=== PATIENT | female | born 1985 | race Caucasian/White ===

== ENCOUNTER → 2021-12-17 15:36 | Outpatient (BNVA) | payer MEDICAID, SELFPAY | PROVIDERS: Visit Provider Registered Nurse Neonatal Intensive Care | DX: Z20.822 Contact with and (suspected) exposure to COVID-19 (principal); R11.0 Nausea | CPT/HCPCS: 87635 ==

== ENCOUNTER 2022-02-11 18:15 | Emergency (ER) | payer MEDICAID, SELFPAY ==
[2022-02-11 18:21] VITALS: BP 135/82; PULSE 106; RESP 18; TEMP 37.5; O2SAT 97; BMI 37.4
--- NOTE | 2022-02-11 18:34 | W.ED.NAVMDI ---
HPI - Nausea/Vomiting/Diarrhea General: Chief complaint: Nausea/Vomiting/Diarrhea Stated complaint: N/V/D, cant keep anything down Time Seen by Provider: 02/11/22 18:23 Source: patient Mode of arrival: ambulatory Limitations: no limitations History of Present Illness: 36-year-old female states that throughout the day she been having multiple episodes of vomiting diarrhea along with some abdominal cramping she has not been able to tolerate any p.o. fluids and feels like she is getting dehydrated she denies any abdominal pain states she is has cramping with her vomiting. No recent ill contacts denies any vomiting blood or diarrhea denies any fevers. Associated nausea: Yes Associated symtoms: Reports nausea; Denies chest pain, dysuria or headache(s) Review of Systems Const: Denies: fever(s), chills, body aches or change in appetite Eyes: Denies: blurry vision or eye discomfort ENMT: Denies: throat pain or dental pain Card: Denies: chest pain Resp: Denies: dyspnea GI: Reports: nausea and vomiting : Denies: dysuria Musc: Denies: neck pain or back pain Skin/Breast: Denies: rash Neuro: Denies: headache(s) Psych: Denies: depression Edin/Lymph: Denies: easy bruising All/Imm: Denies: urticaria PFSH ED PFSH: Medical History Psychiatric care Social History (Updated 02/11/22 @ 18:35 by Shaw Matthews MD) Substance/Drug Use: former Female Reproductive History: Date of last menstrual period: 02/03/22 Physical Exam Const: COMMON NORMALS: no acute distress, patient oriented x3 and healthy appearing HENMT: COMMON NORMALS: normocephalic and atraumatic HEAD & SCALP: normocephalic and atraumatic Eye: COMMON NORMALS: Equal, round and reactive pupils present and EOMs intact bilaterally PUPIL: Yes Equal, round and reactive pupils present Neck/C-Spine: COMMON NORMALS: full ROM and supple Chest: COMMONS NORMALS: normal inspection of the chest and normal palpation of entire chest wall Resp: COMMON NORMALS: normal respiratory effort, No retractions, No use of accessory muscles and clear to auscultation bilaterally AUSCULTATION: clear to auscultation bilaterally Cardio: COMMON NORMALS: regular rate, regular rhythm and No murmurs present (Cardio) RATE: regular rate RHYTHM: regular rhythm GI: COMMON NORMALS: Normal to inspection, nondistended, normoactive bowel sounds present, Soft to palpation, non-tender and no masses PALPATION: Yes Soft to palpation Extremity: COMMON NORMALS: normal to inspection and full ROM Neuro: COMMON NORMALS: patient oriented x3, moves all extremities and no focal motor deficits Psych: COMMON NORMALS: mental status grossly normal, Normal thought process present and cooperative THOUGHT PROCESS: Normal thought process present Skin: COMMON NORMALS: no rashes or lesions noted and no wounds GENERAL SKIN EXAM: no rashes or lesions noted Course Vital Signs: Vital signs: Vital Signs Temperature 99.2 F 02/11/22 18:53 Pulse Rate 88 02/11/22 18:53 Respiratory Rate 19 H 02/11/22 18:53 Blood Pressure 114/89 02/11/22 18:53 Pulse Oximetry 97 02/11/22 18:21 MDM - Nausea/Vomiting/Diarrhea Medical Decision Making Patient presents here with vomiting is likely viral in origin she feels improved here after IV fluids and nausea medicine CT abdomen blood works all normal we will prescribe her Zofran for home she is to follow-up with PCP and return if worsening Lab Data : 02/11/22 18:45 02/11/22 18:45 Radiology Impressions Abdomen/Pelvis CT 02/11/22 19:37 IMPRESSION: 1. Wall thickening of small bowel loops in the left abdomen. Findings raise suspicion for nonspecific enteritis. 2. Dominant follicle in the left ovary. 3. Small hiatal hernia. 4. Incidental/nonacute findings are listed in the report. Laboratory Results WBC 6.5 10^3/uL (4.0-10.0) 02/11/22 18:45 RBC 5.06 10^6/uL (4.1-5.3) 02/11/22 18:45 Hgb 11.8 g/dL (11.5-15.3) 02/11/22 18:45 Hct 38.8 % (37.0-47.0) 02/11/22 18:45 MCV 76.7 fl (81-99) L 02/11/22 18:45 MCH 23.3 pg (28.0-34.0) L 02/11/22 18:45 MCHC 30.4 g/dL (30.0-36.0) 02/11/22 18:45 RDW 15.9 % (12.1-15.1) H 02/11/22 18:45 Plt Count 289 10^3/cmm (130-400) 02/11/22 18:45 MPV 10.2 fL (7.4-10.4) 02/11/22 18:45 Neut % (Auto) 71.3 % 02/11/22 18:45 Lymph % (Auto) 21.2 % 02/11/22 18:45 Wilkin % (Auto) 5.1 % 02/11/22 18:45 Eos % (Auto) 1.9 % 02/11/22 18:45 Baso % (Auto) 0.3 % 02/11/22 18:45 Neut # (Auto) 4.61 10^3/uL (1.8-7.7) 02/11/22 18:45 Lymph # (Auto) 1.4 10^3/uL (0.8-4.8) 02/11/22 18:45 Wilkin # (Auto) 0.3 10^3/uL (0.2-0.9) 02/11/22 18:45 Eos # (Auto) 0.1 10^3/uL (0.0-0.8) 02/11/22 18:45 Baso # (Auto) 0.0 10^3/uL (0.0-0.1) 02/11/22 18:45 Nucleated RBC % (auto) 0 % 02/11/22 18:45 Nucleated RBCs # 0.0 /100WBC 02/11/22 18:45 Sodium 136 mmol/L (136-145) 02/11/22 18:45 Potassium 3.8 mmol/L (3.5-5.1) 02/11/22 18:45 Chloride 105 mmol/L (98-107) 02/11/22 18:45 Carbon Dioxide 19 mmol/L (22-29) L 02/11/22 18:45 Anion Gap 15.8 (5-19) 02/11/22 18:45 BUN 9 mg/dL (6-20) 02/11/22 18:45 Creatinine 0.6 mg/dL (0.5-0.9) 02/11/22 18:45 GFR Calculation 113.8 mL/min (90-130) 02/11/22 18:45 Glucose 95 mg/dL (65-115) 02/11/22 18:45 Calculated Osmolality 280 mOsm/kg (285-295) L 02/11/22 18:45 Calcium 9.2 mg/dL (8.5-10.5) 02/11/22 18:45 Total Bilirubin 0.6 mg/dL (0.15-1.2) 02/11/22 18:45 AST 18 U/L (0-32) 02/11/22 18:45 ALT 16 U/L (0-33) 02/11/22 18:45 Alkaline Phosphatase 86 IU/L (35-105) 02/11/22 18:45 Total Protein 7.1 g/dL (6.6-8.7) 02/11/22 18:45 Albumin 3.9 g/dL (3.5-5.2) 02/11/22 18:45 Globulin 3.2 g/dL (1.3-4.6) 02/11/22 18:45 Lipase 10 U/L (13-60) L 02/11/22 18:45 HCG, Qual Negative (Negative) 02/11/22 19:10 Urine Color Yellow (Yellow) 02/11/22 18:45 Urine Appearance Sl hazy (CLEAR) 02/11/22 18:45 Urine pH 5 (5-7) 02/11/22 18:45 Ur Specific [place] 1.020 (1.005-1.030) 02/11/22 18:45 Urine Protein Neg (Negative) 02/11/22 18:45 Urine Glucose (UA) Norm (Normal) 02/11/22 18:45 Urine Ketones Negative (Negative) 02/11/22 18:45 Urine Blood Neg (Negative) 02/11/22 18:45 Urine Nitrate Negative (Negative) 02/11/22 18:45 Urine Bilirubin 1+ (Negative) H 02/11/22 18:45 Urine Urobilinogen 1 mg/dL (Negative) H 02/11/22 18:45 Ur Leukocyte Esterase Negative (Negative) 02/11/22 18:45 Urine RBC Rare /hpf (0-2) 02/11/22 18:45 Urine WBC 0-4 /hpf (0-5) H 02/11/22 18:45 Ur Squamous Epith Cells 10-15 /hpf (0-5) H 02/11/22 18:45 Amorphous Sediment Not Reportable 02/11/22 18:45 Urine Bacteria 1+ /hpf (NONE) H 02/11/22 18:45 Influenza Type A Ag Negative (Negative) 02/11/22 18:45 Influenza Type B Ag Negative (Negative) 02/11/22 18:45 Discharge Plan Discharge Patient Disposition: Home Clinical Impression: Vomiting Prescriptions: New ondansetron 4 mg tablet,disintegrating 4 mg PO Q6H PRN (Reason: nausea and vomiting) Qty: 14 0RF No Action albuterol sulfate 90 mcg/actuation Hfa Aerosol Inhaler 2 inh INHALATION QID PRN (Reason: Shortness Of Breath) 0RF Discharge Orders: Discharge ED (Routine); Ordered 02/11/22 Ordered By: Shaw Matthews Discharge Diet: Advance as tolerated Discharge Activity: Resume usual activity Patient Instructions: Acute Nausea and Vomiting (ED) Coding Level of Care Code ED Respiratory Coordinator for Chg Fwd Exam Comprehensive
[2022-02-11] MEDS: sodium chloride 0.9% 1,000 ML 999 ML IV (18:50)
[2022-02-11] MEDS: metoclopramide 5 mg/mL SDV 2 mL 10 MG IVP (18:51)
[2022-02-11] MEDS: diphenhydrAMINE 50 mg/mL SDV 1mL IVP (18:51)
[2022-02-11 18:53] VITALS: BP 114/89; PULSE 88; RESP 19; TEMP 37.3
[2022-02-11 18:59] LABS: Basophils % 0.3 %; Eosinophils # 0.1 10^3/uL (0.0-0.8); Eosinophils % 1.9 %; Hematocrit 38.8 % (37.0-47.0); Hemoglobin 11.8 g/dL (11.5-15.3); Lymphocytes # 1.4 10^3/uL (0.8-4.8); Lymphocytes % 21.2 %; Mean Corpuscular HGB Conc 30.4 g/dL (30.0-36.0); Mean Corpuscular Hemoglobin 23.3 pg (28.0-34.0); Mean Corpuscular Volume 76.7 fl (81-99); Mean Platelet Volume 10.2 fL (7.4-10.4); Monocytes # 0.3 10^3/uL (0.2-0.9); Monocytes % 5.1 %; Neutrophils # 4.61 10^3/uL (1.8-7.7); Neutrophils % 71.3 %; Nucleated Red Blood Cells % 0 %; Platelet Count 289 10^3/cmm (130-400); Red Blood Count 5.06 10^6/uL (4.1-5.3); Red Cell Distribution Width 15.9 % (12.1-15.1); White Blood Count 6.5 10^3/uL (4.0-10.0)
[2022-02-11 19:15] LABS: Alanine Aminotransferase 16 U/L (0-33); Albumin Level 3.9 g/dL (3.5-5.2); Alkaline Phosphatase 86 IU/L (35-105); Anion Gap 15.8 (5-19); Aspartate Amino Transferase 18 U/L (0-32); Blood Urea Nitrogen 9 mg/dL (6-20); Calcium 9.2 mg/dL (8.5-10.5); Carbon Dioxide 19 mmol/L (22-29); Chloride 105 mmol/L (98-107); Globulin 3.2 g/dL (1.3-4.6); Glomerular Filtration Rate 113.8 mL/min (90-130); Glucose 95 mg/dL (65-115); Lipase 10 U/L (13-60); Osmolality Calculated 280 mOsm/kg (285-295); Potassium 3.8 mmol/L (3.5-5.1); Sodium 136 mmol/L (136-145); Total Bilirubin 0.6 mg/dL (0.15-1.2); Total Protein 7.1 g/dL (6.6-8.7)
[2022-02-11 19:35] LABS: HCG, Serum Qual Negative (Negative)
--- NOTE | 2022-02-11 19:37 | CTR_ITS ---
PROCEDURE INFORMATION: Exam: CT Abdomen And Pelvis With Contrast Exam date and time: 02/11/2022 8:09 PM Age: 36 years old Clinical indication: Nausea and vomiting; Abdominal pain; Generalized; Additional info: Abd pain TECHNIQUE: Imaging protocol: Computed tomography of the abdomen and pelvis with contrast. Radiation optimization: All CT scans at this facility use at least one of these dose optimization techniques: automated exposure control; mA and/or kV adjustment per patient size (includes targeted exams where dose is matched to clinical indication); or iterative reconstruction. Contrast material: OMNI 300; Contrast volume: 96 ml; Contrast route: INTRAVENOUS (IV); COMPARISON: No relevant prior studies available. RADIATION DOSE METRICS: Total DLP (mGy-cm): 1641.2 FINDINGS: Lungs: Visualized lungs are clear. Pleural spaces: No pleural effusion. Heart: Visualized portions of the heart are unremarkable. Liver: The liver is unremarkable. Gallbladder and bile ducts: Patient has had a previous cholecystectomy. No biliary ductal dilatation. Pancreas: The pancreas is unremarkable. No pancreatic ductal dilatation. Spleen: The spleen is unremarkable. Adrenal glands: The right and left adrenal glands are unremarkable. Kidneys and ureters: The right and left kidneys are unremarkable. The right and left ureters are unremarkable. Stomach and bowel: Small hiatal hernia. Wall thickening of small bowel loops in the left abdomen. No acute abnormality in the colon. Appendix: The appendix is visualized and is unremarkable. No findings to suggest acute appendicitis. Intraperitoneal space: No free intraperitoneal air. No ascites. No loculated fluid collections to suggest an abscess. Arteries: No evidence for aortic aneurysm or aortic dissection. Lymph nodes: No lymphadenopathy. Urinary bladder: The bladder is incompletely filled, which can limit evaluation. No focal abnormality in the bladder however. Reproductive: The uterus is unremarkable. Multiple subcentimeter follicles in both right and left ovaries. Dominant follicle in the left ovary measuring 1.9 x 1.6 cm. Bones/joints: Post-surgical changes consistent with previous spine fusion from T11 through L3. Old compression deformity of L1. Soft tissues: No acute abnormality in the extra-abdominal soft tissues. CT/CT abdomen pelvis w con* [id number] IMPRESSION: 1. Wall thickening of small bowel loops in the left abdomen. Findings raise suspicion for nonspecific enteritis. 2. Dominant follicle in the left ovary. 3. Small hiatal hernia. 4. Incidental/nonacute findings are listed in the report.
[2022-02-11 19:39] LABS: Add Urine Culture? No; Add Urine Microscopic? YES; Bacteria Urine 1+ /hpf; Bilirubin Urine 1+ (Negative); Blood Urine Neg (Negative); Glucose Urine UA Norm (Normal); Ketones Urine Negative (Negative); Leukocyte Esterase Urine Negative (Negative); Nitrate Urine Negative (Negative); Protein Urine Neg (Negative); RBC Urine RARE /hpf (0-2); Urine Appearance SL Hazy (CLEAR); Urine Color Yellow (Yellow); Urobilinogen Urine 1 mg/dL (Negative); WBC Urine 0-4 /hpf (0-5); pH Urine 5 (5-7)
[2022-02-11 19:42] LABS: Influenza A by IFA Negative (Negative); Influenza B by IFA Negative (Negative)
[2022-02-11] MEDS: iohexol 300 mg/mL 100 mL Btl IV (20:25)
== END 2022-02-11 21:35 | disposition home or self-care (01) ==
PROVIDERS: Emergency Provider Emergency Medicine
DX: R11.2 Nausea with vomiting, unspecified (principal)
CPT/HCPCS: 74177; 80053; 81001; 83690; 84703; 85025; 87804; 96361; 96374; 96375; 99284; J1200; J2765; J7030; Q9967

== ENCOUNTER 2022-11-06 16:05 | Emergency (ER) | payer OTHER, MEDICAID, SELFPAY ==
[2022-11-06 16:27] VITALS: BP 126/57; PULSE 88; RESP 16; TEMP 37.1; O2SAT 98; BMI 42.0
--- NOTE | 2022-11-06 18:58 | PC.NURSE ---
pt with lab for blood draw then ambulatory to restroom to give urine sample. pt ambulatory with steady gait.
--- NOTE | 2022-11-06 19:04 | W.ED.ABDPA2 ---
Documented by User: JUJU Buenrostro 11/06/22 20:41 HPI - Abdominal Pain General: Chief Complaint: Abdominal Pain Stated Complaint: possible ulcer Time Seen by Provider: 11/06/22 19:04 Source: patient Mode of arrival: ambulatory Limitations: no limitations History of Present Illness: Patient is a 37-year-old female presents to ED today with a complaint of upper abdominal pain over the past week or so. She apparently was seen at [facility] ED yesterday for complaints of an abscessed tooth as well as abdominal pains. She underwent lab/urine evaluation as well as CT imaging of her abdomen and pelvis. She was told that she had an ulcer and was placed on Carafate and Prilosec as well as antibiotics for the tooth. Patient does admit to NSAID use she has been treating her tooth ache for several weeks. She admits to alcohol use mainly on the weekends. No history of peptic ulcer disease. Patient has not noticed any bloody or black or tarry stools. She is not having any vomiting. She states pain in her upper abdomen is radiating to her back and wants to make sure my kidneys are okay . Does not complain of dysuria, frequency, urgency, cloudy or odorous urine. MD elicited complaint: abdominal pain Pertinent past history: other (diagnosed with peptic ulcer tomorrow) Onset (ago): day(s) Pain Consistency: constant Location: Epigastric Severity: moderate Quality: cramping and sharp Radiation: none Migration to: no migration Relieving factors: nothing Associated Symptoms: Denies change in bowel habits, chills, dysuria, fever(s), hematochezia, hematuria, hematemesis, melena, nausea and vomiting Related Data: Patient : No Review of Systems Const: Denies: fever(s), chills, body aches, fatigue or malaise Card: Denies: chest pain Resp: Denies: dyspnea GI: Reports: abdominal pain; Denies: nausea, vomiting, hematemesis, change in bowel habits, hematochezia or melena : Reports: flank pain; Denies: difficulty voiding, dysuria, urinary frequency, urinary urgency, urinary hesitancy, hematuria or pelvic pain Musc: Reports: back pain (flank pains); Denies: neck pain, extremity pain or joint pain Skin/Breast: Denies: rash Neuro: Denies: headache(s), numbness in extremities, weakness in extremities or sensory changes PFS ED PFSH: Medical History Psychiatric care Physical Exam Const: COMMON NORMALS: no acute distress, patient oriented x3, no limitations, alert and well nourished GENERAL APPEARANCE: cooperative NUTRITIONAL APPEARANCE: obese ORIENTATION/CONSCIOUSNESS: Yes awake, Yes oriented to person, Yes oriented to place and Yes oriented to time HENMT: COMMON NORMALS: normocephalic and atraumatic HEAD & SCALP: normal to inspection, normocephalic and atraumatic Resp: COMMON NORMALS: normal respiratory effort and clear to auscultation bilaterally AUSCULTATION: clear to auscultation bilaterally Cardio: COMMON NORMALS: regular rate and regular rhythm RATE: regular rate RHYTHM: regular rhythm GI: COMMON NORMALS: Normal to inspection, nondistended, normoactive bowel sounds present, Soft to palpation, No hepatosplenomegaly present and no masses INSPECTION: Yes normal to inspection AUSCULTATION: Yes normoactive bowel sounds PALPATION: Yes Soft to palpation, Yes Tenderness to palpation present (GI) (epigastric, throughout upper abdomen), No Guarding due to palpation present (GI), No Rigid due to palpation and Yes No hepatosplenomegaly present : COMMON NORMALS: Yes no CVA tenderness BLADDER/KIDNEY EXAM: Yes no CVA tenderness Back/Pelvis: COMMON NORMALS: no CVA tenderness, thoracic and lumbar spine normal to inspection, no thoracic nor lumbar tenderness and thoraco-lumbar ROM normal Extremity: COMMON NORMALS: normal to inspection GENERAL: Yes normal exam except as noted Neuro: COMMON NORMALS: patient oriented x3, moves all extremities, no focal motor deficits and no sensory deficits noted SENSORIUM/ORIENTATION: Yes alert, Yes oriented to person, Yes oriented to place and Yes oriented to time Skin: COMMON NORMALS: no rashes or lesions noted GENERAL SKIN EXAM: no rashes or lesions noted Course Vital Signs: Vital signs: Vital Signs Temperature 98.7 F 11/06/22 16:27 Pulse Rate 98 11/06/22 20:40 Respiratory Rate 16 11/06/22 20:40 Blood Pressure 140/66 11/06/22 20:40 Pulse Oximetry 96 11/06/22 20:40 Oxygen Delivery Me thod 11/06/22 16:27 MDM - Abdominal Pain Medical Decision Making [facility] records were obtained. Patient CT scan showing: inflammation of the first second portion duodenum with findings suspicious for an ulcer along the anterior aspect of the second portion of the duodenal wall without full-thickness perforation direct visualization is recommended Patient's abdomen is non-surgical today. She has a normal white count. Hemoglobin is 10.1. It was 10.9 yesterday at [facility]. She did have a positive Hemoccult test performed there. I do not feel the need to repeat this today. Remainder of patient's blood work is unremarkable. Urine showing some hematuria and trace leuks but is overly contaminated. Patient has no UTI-like symptoms. Her urine was completely clear yesterday at [facility]. I think at this time most appropriate action would be getting her set up with general surgery for endoscopy. Recommend she continue her Carafate and Prilosec. Does not have a primary care doctor so I will place information with case management to get her one. Strict return to ED precautions given in regards to lightheadedness, dizziness, passing out episodes, racing heart rate, black/tarry stools, etc. Lab Data 11/06/22 18:54 11/06/22 18:54 Labs/Radiology: Laboratory Results WBC 7.2 10^3/uL (4.0-10.0) 11/06/22 18:54 RBC 4.46 10^6/uL (4.1-5.3) 11/06/22 18:54 Hgb 10.1 g/dL (11.5-15.3) L 11/06/22 18:54 Hct 35.0 % (37.0-47.0) L 11/06/22 18:54 MCV 78.5 fl (81-99) L 11/06/22 18:54 MCH 22.6 pg (28.0-34.0) L 11/06/22 18:54 MCHC 28.9 g/dL (30.0-36.0) L 11/06/22 18:54 RDW 19.1 % (12.1-15.1) H 11/06/22 18:54 Plt Count 374 10^3/cmm (130-400) 11/06/22 18:54 MPV 10.0 fL (7.4-10.4) 11/06/22 18:54 Neut % (Auto) 64.3 % 11/06/22 18:54 Lymph % (Auto) 27.8 % 11/06/22 18:54 Kershaw % (Auto) 5.6 % 11/06/22 18:54 Eos % (Auto) 1.5 % 11/06/22 18:54 Baso % (Auto) 0.4 % 11/06/22 18:54 Neut # (Auto) 4.60 10^3/uL (1.8-7.7) 11/06/22 18:54 Lymph # (Auto) 2.0 10^3/uL (0.8-4.8) 11/06/22 18:54 Kershaw # (Auto) 0.4 10^3/uL (0.2-0.9) 11/06/22 18:54 Eos # (Auto) 0.1 10^3/uL (0.0-0.8) 11/06/22 18:54 Baso # (Auto) 0.0 10^3/uL (0.0-0.1) 11/06/22 18:54 Nucleated RBC % (auto) 0 % 11/06/22 18:54 Nucleated RBCs # 0.0 /100WBC 11/06/22 18:54 Sodium 138 mmol/L (136-145) 11/06/22 18:54 Potassium 3.9 mmol/L (3.5-5.1) 11/06/22 18:54 Chloride 104 mmol/L (98-107) 11/06/22 18:54 Carbon Dioxide 24 mmol/L (22-29) 11/06/22 18:54 Anion Gap 13.9 (5-19) 11/06/22 18:54 BUN 9 mg/dL (6-20) 11/06/22 18:54 Creatinine 0.6 mg/dL (0.5-0.9) 11/06/22 18:54 GFR Calculation 113.1 mL/min (90-130) 11/06/22 18:54 Glucose 84 mg/dL (65-115) 11/06/22 18:54 Calculated Osmolality 284 mOsm/kg (285-295) L 11/06/22 18:54 Calcium 9.9 mg/dL (8.5-10.5) 11/06/22 18:54 Total Bilirubin 0.2 mg/dL (0.15-1.2) 11/06/22 18:54 AST 17 U/L (0-32) 11/06/22 18:54 ALT 14 U/L (0-33) 11/06/22 18:54 Alkaline Phosphatase 117 U/L (35-105) H 11/06/22 18:54 Total Protein 7.3 g/dL (6.6-8.7) 11/06/22 18:54 Albumin 4.0 g/dL (3.5-5.2) 11/06/22 18:54 Globulin 3.3 g/dL (1.3-4.6) 11/06/22 18:54 Lipase 13 U/L (13-60) 11/06/22 18:54 HCG, Qual Negative (Negative) 11/06/22 18:54 Urine Color Yellow (Yellow) 11/06/22 19:39 Urine Appearance Hazy (CLEAR) A 11/06/22 19:39 Urine pH 6 (5-7) 11/06/22 19:39 Ur Specific Dinosaur 1.020 (1.005-1.030) 11/06/22 19:39 Urine Protein Neg (Negative) 11/06/22 19:39 Urine Glucose (UA) Norm (Normal) 11/06/22 19:39 Urine Ketones Negative (Negative) 11/06/22 19:39 Urine Blood 2+ (Negative) H 11/06/22 19:39 Urine Nitrate Negative (Negative) 11/06/22 19:39 Urine Bilirubin Neg (Negative) 11/06/22 19:39 Urine Urobilinogen Norm mg/dL (Negative) 11/06/22 19:39 Ur Leukocyte Esterase Trace (Negative) H 11/06/22 19:39 Urine RBC 0-4 /hpf (0-2) H 11/06/22 19:39 Urine WBC 0-4 /hpf (0-5) H 11/06/22 19:39 Ur Squamous Epith Cells Too numerous to cnt /hpf (0-5) H 11/06/22 19:39 Amorphous Sediment Not Reportable 11/06/22 19:39 Urine Bacteria 3+ /hpf (NONE) H 11/06/22 19:39 Discharge Plan Discharge Patient Disposition: Home Clinical Impression: Duodenal ulcer Condition: Stable Prescriptions: No Action ondansetron HCl 4 mg tablet 4 mg PO Q8H 3 Days Qty: 9 0RF fluticasone propionate 50 mcg/actuation spray,suspension 2 spray intranasal DAILY PRN (Reason: allergy symptoms) Qty: 16 0RF Rx Instructions: administer into each nostril albuterol sulfate [Ventolin HFA] 90 mcg/actuation HFA aerosol inhaler See Rx Instructions .ROUTE .COMPLEX Qty: 18 0RF Dose Instruction: TAKE 2 PUFFS BY MOUTH FOUR TIMES DAILY NEEDED FOR SHORTNESS OF BREATH Rx Instructions: TAKE 2 PUFFS BY MOUTH FOUR TIMES DAILY NEEDED FOR SHORTNESS OF BREATH Discharge Orders: Discharge ED (Routine); Ordered 11/06/22 Ordered By: Mckenzie Coburn Referrals: Jeffrey Velázquez MD [Primary Care Provider] - Activity Restrictions/Additional Instructions: As we discussed case management should contact you shortly to set you up with a general surgeon to evaluate the need for an endoscopy. You need to monitor stools for black tarry stools. You need to return to the emergency department for severe dizziness, lightheadedness, syncopal episodes, or generally feeling unwell. Also need to return for severe abdominal pains. Stand Alone Forms: Work/School Release Coding Level of Care Code ED Sql Programmer Analyst for Chg Fwd Exam Comprehensive Documented by User: Felice Linder MD 11/12/22 07:45 HPI - Abdominal Pain General: Chief Complaint: Abdominal Pain Stated Complaint: possible ulcer Time Seen by Provider: 11/06/22 19:04 [facility] PFSH: Medical History Psychiatric care Course Vital Signs: Vital signs: Vital Signs Temperature 98.7 F 11/06/22 16:27 Pulse Rate 98 11/06/22 20:40 Respiratory Rate 16 11/06/22 20:40 Blood Pressure 140/66 11/06/22 20:40 Pulse Oximetry 96 11/06/22 20:40 Oxygen Delivery Me thod 11/06/22 16:27 MDM - Abdominal Pain Medical Decision Making [facility] records were obtained. Patient CT scan showing: inflammation of the first second portion duodenum with findings suspicious for an ulcer along the anterior aspect of the second portion of the duodenal wall without full-thickness perforation direct visualization is recommended Patient's abdomen is non-surgical today. She has a normal white count. Hemoglobin is 10.1. It was 10.9 yesterday at [facility]. She did have a positive Hemoccult test performed there. I do not feel the need to repeat this today. Remainder of patient's blood work is unremarkable. Urine showing some hematuria and trace leuks but is overly contaminated. Patient has no UTI-like symptoms. Her urine was completely clear yesterday at [facility]. I think at this time most appropriate action would be getting her set up with general surgery for endoscopy. Recommend she continue her Carafate and Prilosec. Does not have a primary care doctor so I will place information with case management to get her one. Strict return to ED precautions given in regards to lightheadedness, dizziness, passing out episodes, racing heart rate, black/tarry stools, etc. I discussed this case with JUJU Buenrostro. I reviewed this note and laboratory studies. Felice Linder MD Emergency Medicine Lab Data 11/06/22 18:54 11/06/22 18:54 Labs/Radiology: Laboratory Results WBC 7.2 10^3/uL (4.0-10.0) 11/06/22 18:54 RBC 4.46 10^6/uL (4.1-5.3) 11/06/22 18:54 Hgb 10.1 g/dL (11.5-15.3) L 11/06/22 18:54 Hct 35.0 % (37.0-47.0) L 11/06/22 18:54 MCV 78.5 fl (81-99) L 11/06/22 18:54 MCH 22.6 pg (28.0-34.0) L 11/06/22 18:54 MCHC 28.9 g/dL (30.0-36.0) L 11/06/22 18:54 RDW 19.1 % (12.1-15.1) H 11/06/22 18:54 Plt Count 374 10^3/cmm (130-400) 11/06/22 18:54 MPV 10.0 fL (7.4-10.4) 11/06/22 18:54 Neut % (Auto) 64.3 % 11/06/22 18:54 Lymph % (Auto) 27.8 % 11/06/22 18:54 Kershaw % (Auto) 5.6 % 11/06/22 18:54 Eos % (Auto) 1.5 % 11/06/22 18:54 Baso % (Auto) 0.4 % 11/06/22 18:54 Neut # (Auto) 4.60 10^3/uL (1.8-7.7) 11/06/22 18:54 Lymph # (Auto) 2.0 10^3/uL (0.8-4.8) 11/06/22 18:54 Kershaw # (Auto) 0.4 10^3/uL (0.2-0.9) 11/06/22 18:54 Eos # (Auto) 0.1 10^3/uL (0.0-0.8) 11/06/22 18:54 Baso # (Auto) 0.0 10^3/uL (0.0-0.1) 11/06/22 18:54 Nucleated RBC % (auto) 0 % 11/06/22 18:54 Nucleated RBCs # 0.0 /100WBC 11/06/22 18:54 Sodium 138 mmol/L (136-145) 11/06/22 18:54 Potassium 3.9 mmol/L (3.5-5.1) 11/06/22 18:54 Chloride 104 mmol/L (98-107) 11/06/22 18:54 Carbon Dioxide 24 mmol/L (22-29) 11/06/22 18:54 Anion Gap 13.9 (5-19) 11/06/22 18:54 BUN 9 mg/dL (6-20) 11/06/22 18:54 Creatinine 0.6 mg/dL (0.5-0.9) 11/06/22 18:54 GFR Calculation 113.1 mL/min (90-130) 11/06/22 18:54 Glucose 84 mg/dL (65-115) 11/06/22 18:54 Calculated Osmolality 284 mOsm/kg (285-295) L 11/06/22 18:54 Calcium 9.9 mg/dL (8.5-10.5) 11/06/22 18:54 Total Bilirubin 0.2 mg/dL (0.15-1.2) 11/06/22 18:54 AST 17 U/L (0-32) 11/06/22 18:54 ALT 14 U/L (0-33) 11/06/22 18:54 Alkaline Phosphatase 117 U/L (35-105) H 11/06/22 18:54 Total Protein 7.3 g/dL (6.6-8.7) 11/06/22 18:54 Albumin 4.0 g/dL (3.5-5.2) 11/06/22 18:54 Globulin 3.3 g/dL (1.3-4.6) 11/06/22 18:54 Lipase 13 U/L (13-60) 11/06/22 18:54 HCG, Qual Negative (Negative) 11/06/22 18:54 Urine Color Yellow (Yellow) 11/06/22 19:39 Urine Appearance Hazy (CLEAR) A 11/06/22 19:39 Urine pH 6 (5-7) 11/06/22 19:39 Ur Specific Dinosaur 1.020 (1.005-1.030) 11/06/22 19:39 Urine Protein Neg (Negative) 11/06/22 19:39 Urine Glucose (UA) Norm (Normal) 11/06/22 19:39 Urine Ketones Negative (Negative) 11/06/22 19:39 Urine Blood 2+ (Negative) H 11/06/22 19:39 Urine Nitrate Negative (Negative) 11/06/22 19:39 Urine Bilirubin Neg (Negative) 11/06/22 19:39 Urine Urobilinogen Norm mg/dL (Negative) 11/06/22 19:39 Ur Leukocyte Esterase Trace (Negative) H 11/06/22 19:39 Urine RBC 0-4 /hpf (0-2) H 11/06/22 19:39 Urine WBC 0-4 /hpf (0-5) H 11/06/22 19:39 Ur Squamous Epith Cells Too numerous to cnt /hpf (0-5) H 11/06/22 19:39 Amorphous Sediment Not Reportable 11/06/22 19:39 Urine Bacteria 3+ /hpf (NONE) H 11/06/22 19:39 Discharge Plan Discharge Patient Disposition: Home Clinical Impression: Duodenal ulcer Condition: Stable Prescriptions: No Action ondansetron HCl 4 mg tablet 4 mg PO Q8H 3 Days Qty: 9 0RF fluticasone propionate 50 mcg/actuation spray,suspension 2 spray intranasal DAILY PRN (Reason: allergy symptoms) Qty: 16 0RF Rx Instructions: administer into each nostril albuterol sulfate [Ventolin HFA] 90 mcg/actuation HFA aerosol inhaler See Rx Instructions .ROUTE .COMPLEX Qty: 18 0RF Dose Instruction: TAKE 2 PUFFS BY MOUTH FOUR TIMES DAILY NEEDED FOR SHORTNESS OF BREATH Rx Instructions: TAKE 2 PUFFS BY MOUTH FOUR TIMES DAILY NEEDED FOR SHORTNESS OF BREATH Discharge Orders: Discharge ED (Routine); Ordered 11/06/22 Ordered By: Mckenzie Coburn Referrals: Jeffrey Velázquez MD [Primary Care Provider] - Activity Restrictions/Additional Instructions: As we discussed case management should contact you shortly to set you up with a general surgeon to evaluate the need for an endoscopy. You need to monitor stools for black tarry stools. You need to return to the emergency department for severe dizziness, lightheadedness, syncopal episodes, or generally feeling unwell. Also need to return for severe abdominal pains. Stand Alone Forms: Work/School Release Coding Level of Care Code ED Sql Programmer Analyst for Chg Fwd Exam Comprehensive
[2022-11-06 19:14] LABS: Basophils % 0.4 %; Eosinophils # 0.1 10^3/uL (0.0-0.8); Eosinophils % 1.5 %; Hemoglobin 10.1 g/dL (11.5-15.3); Lymphocytes % 27.8 %; Mean Corpuscular HGB Conc 28.9 g/dL (30.0-36.0); Mean Corpuscular Hemoglobin 22.6 pg (28.0-34.0); Mean Corpuscular Volume 78.5 fl (81-99); Monocytes # 0.4 10^3/uL (0.2-0.9); Monocytes % 5.6 %; Neutrophils % 64.3 %; Nucleated Red Blood Cells % 0 %; Platelet Count 374 10^3/cmm (130-400); Red Blood Count 4.46 10^6/uL (4.1-5.3); Red Cell Distribution Width 19.1 % (12.1-15.1); White Blood Count 7.2 10^3/uL (4.0-10.0)
[2022-11-06 19:38] LABS: HCG, Serum Qual Negative (Negative)
[2022-11-06 19:40] LABS: Alanine Aminotransferase 14 U/L (0-33); Alkaline Phosphatase 117 U/L (35-105); Aspartate Amino Transferase 17 U/L (0-32); Blood Urea Nitrogen 9 mg/dL (6-20); Calcium 9.9 mg/dL (8.5-10.5); Carbon Dioxide 24 mmol/L (22-29); Chloride 104 mmol/L (98-107); Globulin 3.3 g/dL (1.3-4.6); Glomerular Filtration Rate 113.1 mL/min (90-130); Glucose 84 mg/dL (65-115); Lipase 13 U/L (13-60); Osmolality Calculated 284 mOsm/kg (285-295); Sodium 138 mmol/L (136-145); Total Bilirubin 0.2 mg/dL (0.15-1.2); Total Protein 7.3 g/dL (6.6-8.7)
[2022-11-06 19:56] LABS: Add Urine Microscopic? YES; Bilirubin Urine Neg (Negative); Blood Urine 2+ (Negative); Glucose Urine UA Norm (Normal); Ketones Urine Negative (Negative); Leukocyte Esterase Urine Trace (Negative); Nitrate Urine Negative (Negative); Protein Urine Neg (Negative); Urine Appearance Hazy (CLEAR); Urine Color Yellow (Yellow); Urobilinogen Urine Norm (Negative); pH Urine 6 (5-7)
[2022-11-06 19:57] LABS: RBC Urine 0-4 /hpf (0-2); WBC Urine 0-4 /hpf (0-5)
[2022-11-06 19:58] LABS: Add Urine Culture? Yes; Bacteria Urine 3+ /hpf; Squamous Epithelial Cell Urine TOO NUMEROUS TO CNT /hpf (0-5)
[2022-11-06 20:10] LABS: Anion Gap 13.9 (5-19); Potassium 3.9 mmol/L (3.5-5.1)
[2022-11-06 20:40] VITALS: BP 140/66; PULSE 98; RESP 16; O2SAT 96
--- NOTE | 2022-11-07 09:28 | DCPLANNER ---
Addendum entered by Miriam Gaspar 11/26/22 09:30: manager of it called [facility] to confirm that patients information had been received. manager of it was told that clinic did receive information. Patients information will be reviewed, and clinic will call patient with appointment information. Addendum entered by Miriam Gaspar 11/19/22 15:14: manager of it faxed patients information to [facility] - [facility] manager of it faxed patients information to [facility]. Patients information will be reviewed, clinic will call patient with appointment information. Addendum entered by Miriam Gaspar 11/15/22 12:14: manager of it received the following message from the general surgery clinic regarding follow up appointment: Due to patient having [facility], please refer elsewhere manager of it spoke with patient, she stated that she would like be referred to [facility]. manager of it faxed patients information to [facility]. Original Note: manager of it had message to schedule a follow up appointment for patient with general surgery. manager of it sent patients information to the front office staff at general surgery. Patients information will be printed and reviewed. Clinic will call patient with appointment information. manager of it also had message to speak with patient about getting established with a primary care physician. manager of it called phone number [phone], unable to speak with patient at this time. manager of it left a voicemail for patient to return chitra orellana phone call.
== END 2022-11-06 20:44 | disposition home or self-care (01) ==
PROVIDERS: Emergency Provider Physician Assistant; PCP Family Medicine
DX: K26.9 Duodenal ulcer, unspecified as acute or chronic, without hemorrhage or perforation (principal)
CPT/HCPCS: 36415; 80053; 81001; 83690; 84703; 85025; 87086; 99283